=== PATIENT | female | born 1940 | race Caucasian/White ===

== ENCOUNTER 2018-02-14 07:50 | Inpatient (IN) | payer MEDICARE, OTHER ==
[2018-02-07 11:31] LABS: BASOPHILS # (AUTO) 0.1 X10'3 (0-0.2); BASOPHILS % (AUTO) 1.2 % (0-1); EOSINOPHILS # (AUTO) 0.2 X10'3 (0-0.9); EOSINOPHILS % (AUTO) 2.8 % (0-6); LYMPHOCYTES # (AUTO) 2.9 X10'3 (1.1-4.8); LYMPHOCYTES % (AUTO) 33.1 % (21-51); MEAN CORPUSCULAR HEMOGLOBIN 29.2 PG (27.0-31.0); MEAN CORPUSCULAR HGB CONC 34.3 % (33.0-36.5); MEAN CORPUSCULAR VOLUME 84.9 FL (78-98); MEAN PLATELET VOLUME 7.3 FL (7.4-10.4); MONOCYTES # (AUTO) 0.6 X10'3 (0-0.9); MONOCYTES % (AUTO) 6.6 % (2-12); NEUTROPHILS # (AUTO) 4.9 X10'3 (1.8-7.7); NEUTROPHILS % (AUTO) 56.3 % (42-75); PRE OP HEMATOCRIT 41.9 % (35.0-45.0); PRE OP HEMOGLOBIN 14.4 g/dL (12.0-16.0); PRE OP PLATELET COUNT 361 X10'3 (140-440); RED BLOOD COUNT 4.94 X10'6 (4.20-5.60); RED CELL DISTRIBUTION WIDTH 14.6 % (11.5-14.5)
[2018-02-07 11:38] LABS: CLARITY,URINE SLIGHTLY CLOUDY (Clear); COLOR,URINE YELLOW (Yellow); GLUCOSE, URINE NEGATIVE (Neg); KETONES,URINE NEGATIVE (Neg); LEUKOCYTE ESTERASE ,URINE TRACE (Neg); NITRITES, URINE NEGATIVE (Neg); OCCULT BLOOD,URINE NEGATIVE (Neg); PH,URINE 5.5 (4.8-8.0); PROTEIN,URINE NEGATIVE (Neg); UROBILINOGEN,URINE 0.2 E.U/dL (0.2-1.0)
[2018-02-07 11:40] LABS: UA COLLECTION TYPE CLN CATCH MIDSTREAM
[2018-02-07 11:47] LABS: ALBUMIN/GLOBULIN RATIO 0.9 (1.1-1.5); ALKALINE PHOSPHATASE 95 IU/L (46-116); BLOOD UREA NITROGEN 19 MG/DL (7-18); BUN/CREATININE RATIO 20.4 (6.6-38.0); CALCIUM 9.5 MG/DL (8.5-10.1); CHLORIDE 105 MMOL/L (99-107); CREATININE 0.93 MG/DL (0.40-0.90); PRE OP ALT 26 U/L (30-65); PRE OP ANION GAP 9 (8-16); PRE OP AST 17 U/L (10-37); PRE OP BILIRUB, TOTAL 0.4 MG/DL (0.0-1.0); PRE OP GLUCOSE 104 MG/DL (70-104); PRE OP POTASSIUM 4.4 MMOL/L (3.4-5.1); PRE OP SODIUM 141 MMOL/L (135-145); TOTAL CARBON DIOXIDE 27.1 MMOL/L (24-32); TOTAL PROTEIN 8.3 G/DL (6.4-8.2); eGFR 59 ML/MIN
[2018-02-07 12:02] LABS: MUCUS STRANDS MODERATE /LPF (Neg); SQUAMOUS EPITHELIAL CELL,UR MANY /LPF (FEW)
[2018-02-07 12:04] LABS: BACTERIA,URINE FEW /HPF (Neg); RBC,URINE 0-2 /HPF (0-2)
[2018-02-14] VITALS (33 sets, daily range): BP systolic 82–117; BP diastolic 47–80
[~2018-02-14] VITALS: Ht 157.5 cm; Wt 93.1 kg
[~2018-02-14 07:50] MED LIST: AMIT-106 PO; BETA1TAB20 PO; LACT1CAP67 PO; LEVO75TA7 PO; acetaminophen 325mg tablet PO ONE; ceFAZolin 2gm in dextrose, iso 100 ML IV ONE; celeCOXIB 100mg capsule PO ONE; famotidine 20mg tablet PO ONE; gabapentin 300mg capsule PO ONE; metoclopramide 5 mg/ml inj IV ONE; oxyCODONE SR 10mg (sust. release) tab PO ONE; ringers solution, lacted 1,000 ML IV SCH; vancomycin inj 1,500 MG in normal saline 300ml IV soln IV ONE
[2018-02-14] MEDS ORDERED: bisacodyl 10mg suppository rectal RC PRN (10:10)
[2018-02-14] MEDS ORDERED: MORPHINE 2MG in 2ml NS syringe IV PRN (10:10)
[2018-02-14] MEDS ORDERED: acetaminophen 325mg tablet PO PRN (10:10)
[2018-02-14] MEDS ORDERED: oxyCODONE/APAP 10/325mg tablet PO PRN (10:10)
[2018-02-14] MEDS ORDERED: magnesium hydroxide 30ml (MOM) UD suspension PO PRN (10:10)
[2018-02-14] MEDS ORDERED: diphenhydrAMINE 25mg capsule PO PRN (10:10)
[2018-02-14] MEDS ORDERED: ondansetron/PF 4mg/2ml inj IV PRN ×3 (10:10→12:05)
[2018-02-14] MEDS ORDERED: BUPIVAcaine/PF 7.5mg/ml (0.75%) 10ml vial ONE (10:15)
[2018-02-14] MEDS ORDERED: vancomycin 1,000mg inj ONE (10:17)
[2018-02-14] MEDS ORDERED: epiNEPHrine 1 mg/ml inj ONE ×2 (10:17→10:18)
[2018-02-14] MEDS ORDERED: ketorolac trometh. 30mg/ml inj. ONE (10:17)
[2018-02-14] MEDS ORDERED: ROPIVAcaine 0.5% (5mg/ml) 30ml vial ONE (10:18)
[2018-02-14] MEDS ORDERED: cloNIDine hcl/PF 100mcg/ml inj ONE (10:18)
[2018-02-14] MEDS ORDERED: midazolam 2 mg/2 ml injection ONE ×2 (10:19→10:48)
[2018-02-14] MEDS ORDERED: fentaNYL/PF 50MCG/1 ML 2ML syringe ONE (10:19)
[2018-02-14] MEDS ORDERED: MORPHINE SULFATE/PF 0.5 MG/ML 10ML AMPUL ONE (10:28)
[2018-02-14] MEDS ORDERED: tranexamic acid inj. 1,000 MG in normal saline 100ml IV soln 90 ML IV ONE (11:00)
[2018-02-14] MEDS ORDERED: propofol inj 20 ML IV ONE (11:04)
[2018-02-14] MEDS ORDERED: LIDOcaine 1%/PF (10mg/ml) 5ml vial ONE (11:12)
[2018-02-14] MEDS ORDERED: phenylephrine 10mg/ml inj IV ONE (11:12)
[2018-02-14] MEDS ORDERED: morphine 4 MG/ML inj SYRINge IV PRN (12:05)
[2018-02-14] MEDS ORDERED: naloxone 2mg/2ml inj 1.8 MG in normal saline 500ml IV soln 500 ML IV PRN (12:05)
[2018-02-14] MEDS ORDERED: diphenhydrAMINE 50 mg/ml inj IV PRN (12:05)
[2018-02-14] MEDS ORDERED: ringers solution, lacted 1,000 ML IV SCH (12:05)
[2018-02-14] MEDS ORDERED: diphenhydrAMINE 50 mg/ml inj ONE (12:08)
[2018-02-14] MEDS ORDERED: ePHEDrine 50MG/ML INJ. ONE (12:37)
[2018-02-14] MEDS: potassium cl 20mEq in 1/2 NS 1,000 ML IV SCH ×2 (15:25→18:07)
[2018-02-14] MEDS: gabapentin 300mg capsule PO SCH ×2 (15:26→21:05)
[2018-02-14] MEDS: diphenhydrAMINE 25mg capsule PO PRN (15:31)
[2018-02-14] MEDS: clindamycin-Cleocin 900mg/D5W 50 ML IV SCH (15:31)
[2018-02-14] MEDS: oxyCODONE/APAP 10/325mg tablet PO PRN ×2 (15:35→21:04)
[2018-02-14] MEDS: ascorbic acid 500mg tablet PO SCH (21:04)
[2018-02-14] MEDS: amitriptyline 25mg tablet PO SCH (21:04)
[2018-02-14] MEDS: sennosides 8.6mg tablet PO SCH (21:05)
[2018-02-14] MEDS: lactobacillus rhamnosus 10,000 MMU CELLS/CAPSULE PO SCH (21:05)
[2018-02-15] VITALS (7 sets, daily range): BP systolic 92–114; BP diastolic 31–58
[2018-02-15] MEDS: clindamycin-Cleocin 900mg/D5W 50 ML IV SCH (00:45)
[2018-02-15] MEDS: diphenhydrAMINE 25mg capsule PO PRN (02:52)
[2018-02-15] MEDS: potassium cl 20mEq in 1/2 NS 1,000 ML IV SCH ×4 (03:27→23:49)
[2018-02-15] MEDS: oxyCODONE/APAP 10/325mg tablet PO PRN (05:04)
[2018-02-15 06:26] LABS: BASOPHILS % (AUTO) 0.4 % (0-1); EOSINOPHILS # (AUTO) 0.1 X10'3 (0-0.9); EOSINOPHILS % (AUTO) 2.2 % (0-6); HEMATOCRIT 32.8 % (35.0-45.0); HEMOGLOBIN 11.2 g/dl (12.0-16.0); LYMPHOCYTES # (AUTO) 1.5 X10'3 (1.1-4.8); LYMPHOCYTES % (AUTO) 22.4 % (21-51); MEAN CORPUSCULAR HEMOGLOBIN 29.1 PG (27.0-31.0); MEAN CORPUSCULAR HGB CONC 34.1 % (33.0-36.5); MEAN CORPUSCULAR VOLUME 85.4 FL (78-98); MEAN PLATELET VOLUME 7.2 FL (7.4-10.4); MONOCYTES # (AUTO) 0.5 X10'3 (0-0.9); MONOCYTES % (AUTO) 7.3 % (2-12); NEUTROPHILS # (AUTO) 4.4 X10'3 (1.8-7.7); NEUTROPHILS % (AUTO) 67.7 % (42-75); PLATELET COUNT 236 X10'3 (140-440); RED BLOOD COUNT 3.84 X10'6 (4.20-5.60); RED CELL DISTRIBUTION WIDTH 14.6 % (11.5-14.5); WHITE BLOOD COUNT 6.5 X10'3 (4.5-11.0)
[2018-02-15 06:43] LABS: ANION GAP 7 (8-16); CHLORIDE 107 MMOL/L (99-107); POTASSIUM 4.5 MMOL/L (3.5-5.1); SODIUM 139 MMOL/L (135-145); TOTAL CARBON DIOXIDE 24.9 MMOL/L (24-32)
[2018-02-15] MEDS ORDERED: aspirin 325mg tablet ONE (07:04)
[2018-02-15] MEDS: levoTHYROXINE 75mcg tablet PO SCH (07:06)
[2018-02-15] MEDS: multivitamins, therapeutics tablet PO SCH ×2 (07:06→07:07)
[2018-02-15] MEDS: ascorbic acid 500mg tablet PO SCH ×2 (07:06→19:46)
[2018-02-15] MEDS: gabapentin 300mg capsule PO SCH ×3 (07:06→19:45)
[2018-02-15] MEDS: lactobacillus rhamnosus 10,000 MMU CELLS/CAPSULE PO SCH ×2 (07:06→19:46)
[2018-02-15] MEDS: aspirin 325mg tablet PO SCH (07:07)
[2018-02-15] MEDS: HYDROcodone/acetaminophen 5mg/325mg tablet PO PRN ×2 (15:19→19:45)
[2018-02-15] MEDS: sennosides 8.6mg tablet PO SCH (19:48)
[2018-02-15] MEDS: amitriptyline 25mg tablet PO SCH (19:48)
[2018-02-16] MEDS: HYDROcodone/acetaminophen 5mg/325mg tablet PO PRN ×4 (02:15→16:12)
[2018-02-16 06:00] VITALS: BP 114/48
[2018-02-16 06:24] LABS: BASOPHILS # (AUTO) 0.1 X10'3 (0-0.2); BASOPHILS % (AUTO) 0.7 % (0-1); EOSINOPHILS # (AUTO) 0.2 X10'3 (0-0.9); EOSINOPHILS % (AUTO) 2.4 % (0-6); HEMATOCRIT 33.5 % (35.0-45.0); HEMOGLOBIN 11.3 g/dl (12.0-16.0); LYMPHOCYTES # (AUTO) 1.5 X10'3 (1.1-4.8); LYMPHOCYTES % (AUTO) 18.5 % (21-51); MEAN CORPUSCULAR HGB CONC 33.8 % (33.0-36.5); MEAN CORPUSCULAR VOLUME 85.8 FL (78-98); MEAN PLATELET VOLUME 7.8 FL (7.4-10.4); MONOCYTES # (AUTO) 0.7 X10'3 (0-0.9); MONOCYTES % (AUTO) 9.5 % (2-12); NEUTROPHILS # (AUTO) 5.4 X10'3 (1.8-7.7); NEUTROPHILS % (AUTO) 68.9 % (42-75); PLATELET COUNT 244 X10'3 (140-440); RED CELL DISTRIBUTION WIDTH 14.1 % (11.5-14.5); WHITE BLOOD COUNT 7.8 X10'3 (4.5-11.0)
[2018-02-16] MEDS: levoTHYROXINE 75mcg tablet PO SCH (07:08)
[2018-02-16] MEDS: gabapentin 300mg capsule PO SCH ×3 (07:08→20:01)
[2018-02-16] MEDS: lactobacillus rhamnosus 10,000 MMU CELLS/CAPSULE PO SCH ×2 (07:08→20:01)
[2018-02-16] MEDS: multivitamins, therapeutics tablet PO SCH ×2 (07:08→08:00)
[2018-02-16] MEDS: ascorbic acid 500mg tablet PO SCH ×2 (07:08→20:01)
[2018-02-16] MEDS: aspirin 325mg tablet PO SCH (08:42)
[2018-02-16 10:00] VITALS: BP 95/55
[2018-02-16 18:00] VITALS: BP 123/56
[2018-02-16] MEDS: sennosides 8.6mg tablet PO SCH (20:01)
[2018-02-16] MEDS: amitriptyline 25mg tablet PO SCH (20:01)
[2018-02-16 22:00] VITALS: BP 113/54
[2018-02-17] MEDS: HYDROcodone/acetaminophen 5mg/325mg tablet PO PRN ×2 (05:22→10:12)
[2018-02-17 06:00] VITALS: BP 112/59
[2018-02-17 06:19] LABS: BASOPHILS % (AUTO) 0.3 % (0-1); EOSINOPHILS # (AUTO) 0.1 X10'3 (0-0.9); EOSINOPHILS % (AUTO) 1.1 % (0-6); HEMATOCRIT 32.9 % (35.0-45.0); HEMOGLOBIN 11.2 g/dl (12.0-16.0); LYMPHOCYTES % (AUTO) 19.9 % (21-51); MEAN CORPUSCULAR HEMOGLOBIN 29.3 PG (27.0-31.0); MEAN CORPUSCULAR HGB CONC 34.2 % (33.0-36.5); MEAN CORPUSCULAR VOLUME 85.6 FL (78-98); MEAN PLATELET VOLUME 7.6 FL (7.4-10.4); MONOCYTES # (AUTO) 0.9 X10'3 (0-0.9); MONOCYTES % (AUTO) 8.7 % (2-12); PLATELET COUNT 245 X10'3 (140-440); RED BLOOD COUNT 3.84 X10'6 (4.20-5.60); RED CELL DISTRIBUTION WIDTH 14.5 % (11.5-14.5); WHITE BLOOD COUNT 9.9 X10'3 (4.5-11.0)
[2018-02-17] MEDS: multivitamins, therapeutics tablet PO SCH ×2 (08:00→10:10)
[2018-02-17 10:00] VITALS: BP 96/46
[2018-02-17] MEDS: aspirin 325mg tablet PO SCH (10:11)
[2018-02-17] MEDS: levoTHYROXINE 75mcg tablet PO SCH (10:11)
[2018-02-17] MEDS: ascorbic acid 500mg tablet PO SCH (10:11)
[2018-02-17] MEDS: gabapentin 300mg capsule PO SCH (10:11)
[2018-02-17] MEDS: lactobacillus rhamnosus 10,000 MMU CELLS/CAPSULE PO SCH (10:11)
== END 2018-02-17 11:45 | disposition home or self-care (01) | DRG 470 ==
LOC: PAS IN 07:50 → EDSTATUS 10:30 → ORTHO 4S 15:16
PROVIDERS: ADMIT Orthopaedic Surgery; ATTEND Orthopaedic Surgery
PROC: 0SR906Z Replacement of Right Hip Joint with Oxidized Zirconium on Polyethylene Synthetic Substitute, Open Approach (ICD-10-PCS; principal; 2018-02-14 10:25)
DX: M16.11 Unilateral primary osteoarthritis, right hip (principal); D62 Acute posthemorrhagic anemia; M25.751 Osteophyte, right hip; E03.9 Hypothyroidism, unspecified; Z79.82 Long term (current) use of aspirin; Z88.0 Allergy status to penicillin; Z88.2 Allergy status to sulfonamides; Z79.899 Other long term (current) drug therapy; Z87.891 Personal history of nicotine dependence; Z80.9 Family history of malignant neoplasm, unspecified
CPT/HCPCS: 36415; 71046; 72170; 80051; 80053; 81001; 84443; 85025; 86885; 86900; 86901; 87070; 97116; 97161; 97530; A4615; A7000; C1758; C1776; J0171; J0690; J0735; J1200; J1885; J2001; J2250; J2274; J2310; J2370; J2704; J2765; J2795; J3010; J3370; J3490; J7030; J7120; Q0163

== ENCOUNTER 2019-11-21 17:21 | Emergency (ER) | payer MEDICARE, OTHER ==
[~2019-11-21] VITALS: Ht 157.5 cm; Wt 109.1 kg
[~2019-11-21 17:21] MED LIST changes: -AMIT-106 PO; +AMIT25TA9 PO; +ASPI-1 PO; +AZO PO; -BETA1TAB20 PO; +PANT40TA4 PO; +VIT1CAPS9 PO; -acetaminophen 325mg tablet PO ONE; -ceFAZolin 2gm in dextrose, iso 100 ML IV ONE; -celeCOXIB 100mg capsule PO ONE; -famotidine 20mg tablet PO ONE; -gabapentin 300mg capsule PO ONE; -metoclopramide 5 mg/ml inj IV ONE; -oxyCODONE SR 10mg (sust. release) tab PO ONE; -ringers solution, lacted 1,000 ML IV SCH; -vancomycin inj 1,500 MG in normal saline 300ml IV soln IV ONE
--- NOTE | 2019-11-21 18:14 | NUR ---
Pt to MRI
--- NOTE | 2019-11-21 19:35 | NUR ---
Pt. back from MRI
[2019-11-21 21:22] LABS: PARTIAL THROMBOPLASTIN TIME 28 SECONDS (22-32)
[2019-11-21 21:26] LABS: ALANINE AMINOTRANSFERASE 120 U/L (12-78); ALBUMIN 2.7 G/DL (3.4-5.0); ALBUMIN/GLOBULIN RATIO 0.7 (1.1-1.5); ALKALINE PHOSPHATASE 254 IU/L (46-116); ANION GAP 8 (8-16); ASPARTATE AMINO TRANSFERASE 69 U/L (10-37); BILIRUBIN,TOTAL 0.6 MG/DL (0.1-1.0); BLOOD UREA NITROGEN 9 MG/DL (7-18); BUN/CREATININE RATIO 10.5 (6.6-38.0); CHLORIDE 107 MMOL/L (99-107); CREATININE 0.86 MG/DL (0.40-0.90); GLUCOSE 105 MG/DL (70-104); POTASSIUM 4.1 MMOL/L (3.5-5.1); SODIUM 143 MMOL/L (135-145); TOTAL CARBON DIOXIDE 27.6 MMOL/L (24-32); TOTAL PROTEIN 6.6 G/DL (6.4-8.2); eGFR 64 ML/MIN
[2019-11-21 21:41] LABS: BASOPHILS # (AUTO) 0.1 X10'3 (0-0.2); BASOPHILS % (AUTO) 1.3 % (0-1); EOSINOPHILS # (AUTO) 0.2 X10'3 (0-0.9); EOSINOPHILS % (AUTO) 2.6 % (0-6); HEMATOCRIT 31.4 % (35.0-45.0); HEMOGLOBIN 10.4 g/dl (12.0-16.0); LYMPHOCYTES # (AUTO) 1.5 X10'3 (1.1-4.8); MEAN CORPUSCULAR HEMOGLOBIN 28.4 PG (27.0-31.0); MEAN CORPUSCULAR HGB CONC 33.2 g/dL (33.0-36.5); MEAN CORPUSCULAR VOLUME 85.5 FL (78-98); MEAN PLATELET VOLUME 7.6 FL (7.4-10.4); MONOCYTES # (AUTO) 0.8 X10'3 (0-0.9); MONOCYTES % (AUTO) 8.5 % (2-12); NEUTROPHILS # (AUTO) 6.3 X10'3 (1.8-7.7); NEUTROPHILS % (AUTO) 70.6 % (42-75); PLATELET COUNT 332 X10'3 (140-440); RED BLOOD COUNT 3.67 X10'6 (4.20-5.60); RED CELL DISTRIBUTION WIDTH 14.5 % (11.5-14.5); WHITE BLOOD COUNT 8.9 X10'3 (4.5-11.0)
[2019-11-21 22:17] VITALS: BP 119/60
== END 2019-11-21 22:19 | disposition home or self-care (01) ==
LOC: ER 17:22
DX: M21.371 Foot drop, right foot (principal); G89.29 Other chronic pain; F10.99 Alcohol use, unspecified with unspecified alcohol-induced disorder; R79.1 Abnormal coagulation profile; Z90.710 Acquired absence of both cervix and uterus; Z87.891 Personal history of nicotine dependence; Z60.2 Problems related to living alone; Z88.0 Allergy status to penicillin; Z88.2 Allergy status to sulfonamides; Z79.82 Long term (current) use of aspirin; Z79.899 Other long term (current) drug therapy; Y90.9 Presence of alcohol in blood, level not specified
CPT/HCPCS: 36415; 72148; 80053; 85025; 85610; 85730; 99284